=== PATIENT | male | born 1985 | race Caucasian/White ===

== ENCOUNTER 2019-09-28 16:00 | Inpatient (IN) | payer SELFPAY ==
[2019-09-28 16:09] VITALS: BP 140/91; PULSE 101; RESP 18; TEMP 37.2; O2SAT 97; BMI 30.8
--- NOTE | 2019-09-28 16:38 | ECG_ITS ---
Measurements Intervals [place] Rate: 71 P: 53 NV: 138 QRS: 63 QRSD: 96 T: 51 QT: 386 QTc: 422 SINUS RHYTHM No previous ECG available for comparison Electronically Signed On 09-28-2019 20:33:58 CDT by Kelvin Prajapati M.D. [email or web address]
--- NOTE | 2019-09-28 17:03 | W.ED.PSYCH ---
HPI - Psych General: Chief Complaint: Psychiatric Symptoms Stated Complaint: SENT OVER BY [facility] Time Seen by Provider: 09/28/19 16:25 History of Present Illness: HPI Narrative: Maicol is a 34-year-old male who comes in complaining of suicidal ideation. He states he has a plan to overdose on sleeping pills. Patient states he has a history of depression and suicidal ideation. He was most recently hospitalized in [place] but then moved to medical floor after a psych patient had a coronavirus positive come back positive. The patient adamantly denies any cough, fever, shortness of breath or any flulike type of symptom. Patient states he is here because he needs help with his depression. Patient also admits to polysubstance abuse but does not appear to be under the influence of any type of drug at this time. Review of Systems Const: Denies: fever(s), chills, body aches, fatigue, malaise, night sweats or diaphoresis Eyes: Denies: change in vision, blurry vision or blind spots ENMT: Denies: throat pain, odynophagia, hoarseness, ear or mastoid pain, ear discharge, change in hearing or nasal discharge Card: Denies: chest pain, palpitations, irregular heart rhythm, lightheadedness, syncope, pre-syncope, dyspnea on exertion or orthopnea Resp: Denies: dyspnea, productive cough, non-productive cough, wheezing, hemoptysis or chest congestion GI: Denies: abdominal pain, nausea, vomiting, hematemesis, coffee ground emesis, heartburn, diarrhea, constipation, GI cramping, hematochezia or melena : Denies: flank pain, dysuria, urinary frequency, urinary urgency, oliguria, urinary incontinence or hematuria Musc: Denies: neck pain, back pain, extremity pain, extremity swelling, joint pain, joint swelling, joint redness, joint warmth or joint stiffness Skin/Breast: Denies: rash, pruritus, erythema, skin tenderness or jaundice Neuro: Denies: headache(s), numbness in extremities, weakness in extremities, sensory changes, lack of coordination, difficulty walking, dizziness, vertigo, confusion or Slurred speech present Endo: Denies: polyuria, polydipsia, tired all the time, cold intolerance, excessive sweating, flushing, hot flashes or heat intolerance Tristin/Lymph: Denies: easy bruising, easy bleeding, petechiae, purpura or enlarged lymph nodes All/Imm: Denies: urticaria, throat swelling, tongue swelling, facial swelling or acute wheezing PFSH ED PFSH: Medical History Depression Social History (Updated 09/28/19 @ 17:19 by Raven Leigh) Smoking and tobacco status: current every day smoker Substance/Drug Use: current Other substance/drug use details: Patient admits to polysubstance abuse. Physical Exam Const: COMMON NORMALS: no acute distress, patient oriented x3, no limitations, healthy appearing and well nourished EXAM LIMITATIONS: no altered mental status GENERAL APPEARANCE: cooperative, well kempt and well developed HENMT: COMMON NORMALS: normocephalic, atraumatic, hearing grossly normal bilaterally, external ears normal, EAC's normal, Normal external nose present and moist oral mucous membranes HEAD & SCALP: normal to inspection, normocephalic and atraumatic FACE & SINUS: normal facial exam and face symmetric NOSE: Normal external nose present and Normal nares present EXTERNAL EAR: Yes external ears normal EXTERNAL AUDITORY CANAL: EAC's normal MOUTH: Normal oral and palatal mucosa present, lip normal and tongue normal Eye: COMMON NORMALS: Equal, round and reactive pupils present, EOMs intact bilaterally, conjunctivae normal and no scleral icterus GENERAL EYE: appearance normal, both eyes and all related structures and normal light reflex ALIGNMENT: Yes alignment normal PERIORBITAL: periorbital findings normal EYELID: eyelids normal CONJUNCTIVA: Yes conjunctivae normal SCLERA: sclerae normal PUPIL: Yes Equal, round and reactive pupils present DIRECT OPHTHALMOSCOPY: Yes normal light reflex Neck/C-Spine: COMMON NORMALS: full ROM, no lymphadenopathy, supple, no meningeal signs and no JVD GENERAL: Yes normal visual inspection and Yes trachea midline CERVICAL SPINE: Yes cervical ROM normal Chest: COMMONS NORMALS: normal inspection of the chest and normal palpation of entire chest wall Resp: COMMON NORMALS: normal respiratory effort, No retractions, No use of accessory muscles and clear to auscultation bilaterally EFFORT & INSPECTION: Yes able to speak in complete sentences AUSCULTATION: clear to auscultation bilaterally, no crackles, no rales, no rhonchi and no wheezes Cardio: COMMON NORMALS: no JVD, regular rate, regular rhythm, S1 normal heart sound present, S2 normal heart sound present, No gallops present (Cardio), No clicks present (Cardio), No murmurs present (Cardio) and No rub (Cardio) RATE: regular rate RHYTHM: regular rhythm HEART SOUNDS: S1 normal heart sound present, S2 normal heart sound present, no click, no gallops, no murmurs and no rubs GI: COMMON NORMALS: Soft to palpation, non-tender, No hepatosplenomegaly present and no masses PALPATION: Yes Soft to palpation, No Tenderness to palpation present (GI), No Guarding due to palpation present (GI), No Rigid due to palpation, Yes No hepatosplenomegaly present, No Hernia present, No Palpable mass present and No Pulsatile mass present : COMMON NORMALS: Yes no CVA tenderness BLADDER/KIDNEY EXAM: Yes no CVA tenderness Back/Pelvis: COMMON NORMALS: no CVA tenderness, thoracic and lumbar spine normal to inspection, no thoracic nor lumbar tenderness and thoraco-lumbar ROM normal Extremity: COMMON NORMALS: normal to inspection, full ROM, capillary refill normal, no joint enlargement, no clubbing, cyanosis or edema and no calf tenderness Neuro: COMMON NORMALS: patient oriented x3, CN's II-XII intact bilaterally, moves all extremities, no focal motor deficits and no sensory deficits noted MENINGEAL SIGNS: Yes no meningeal signs SPEECH: speech normal Psych: COMMON NORMALS: mental status grossly normal, Normal thought process present, cooperative, normal affect, speech normal and activity/motor behavior normal APPEARANCE: Yes well kempt SPEECH: Yes normal speech THOUGHT PROCESS: Normal thought process present Skin: COMMON NORMALS: no rashes or lesions noted, turgor normal, no jaundice, no petechiae and no mottling GENERAL SKIN EXAM: no rashes or lesions noted and turgor normal MDM - Psych MDM Narrative: Medical decision making narrative: The case was reviewed with Dr. Gonzalez, he agrees to admit the patient for suicidal ideation once medically cleared. He understands the patient's situation in [place] and that the patient here has a normal pulse ox, no cough, no chills, no shortness of breath or any other sign of COVID exposure. He agrees to go ahead and admit and declines to have the patient tested for concern. Lab Data: Labs: Lab Results 09/28/19 Range/Units 16:45 Urine Opiates Scre en Negative (Negative) ng/mL Ur Barbiturates Sc reen Negative (Negative) ng/mL Ur Phencyclidine S crn Negative (Negative) ng/mL Ur Amphetamines Sc reen Negative (Negative) ng/mL U Benzodiazepines Scrn Positive H (Negative) ng/mL Urine Cocaine Scre en Negative (Negative) ng/mL U Marijuana (THC) Screen Positive H (Negative) ng/mL EKG Data^: EKG 1: Attestation: I personally reviewed and interpreted this EKG as follows: EKG interpretation date: 09/28/19 EKG interpretation time: 17:12 Interpretation: Normal sinus rhythm at 71 beats a minute, no acute ST or T wave changes. Benign early repolarization. Discharge Plan Discharge Patient Disposition: Admitted As Inpatient Clinical Impression: Suicidal ideation, Depression Condition: Stable Prescriptions: No Action fluoxetine 40 mg Capsule 40 mg PO DAILY RF: 0 hydroxyzine pamoate 100 mg Capsule 100 mg PO BEDTIME RF: 0 Tylenol 325 mg Tablet 325 mg PO QID PRN (Reason: Pain) RF: 0 Coding Level of Care Code ED Entertainment & Media Correspondent for Chg Omi
[2019-09-28 17:06] LABS: Amphetamines Screen Urine Negative (Negative); Barbiturates Screen Urine Negative (Negative); Benzodiazepines Screen Urine Positive (Negative); Cocaine Screen Urine Negative (Negative); Opiate Screen Urine Negative (Negative); PCP Screen Urine Negative (Negative); THC Screen Urine Positive (Negative)
[2019-09-28 17:49] LABS: Basophils % 0.3 %; Eosinophils # 0.1 10^3/uL (0.0-0.8); Eosinophils % 1.7 %; Hematocrit 39.7 % (42.0-52.0); Lymphocytes # 1.8 10^3/uL (0.8-4.8); Lymphocytes % 29.9 %; Mean Corpuscular HGB Conc 32.7 g/dL (30.0-36.0); Mean Corpuscular Hemoglobin 29.4 pg (28.0-34.0); Mean Corpuscular Volume 89.8 fL (80-94); Mean Platelet Volume 8.8 fL (7.4-10.4); Monocytes # 0.3 10^3/uL (0.2-0.9); Neutrophils # 3.8 10^3/uL (1.8-7.7); Neutrophils % 62.9 %; Nucleated Red Blood Cells % 0 %; Platelet Count 230 10^3/cmm (130-400); Red Blood Count 4.42 10^6/uL (4.1-5.3); Red Cell Distribution Width 14.3 % (12.1-15.1); White Blood Count 6.1 10^3/uL (4.0-10.0)
[2019-09-28 18:01] VITALS: BP 97/57; PULSE 70; RESP 16; O2SAT 98
[2019-09-28 18:09] LABS: Lithium < 0.1 mmol/L (0.6-1.2)
[2019-09-28 18:10] LABS: Carbamazepine Tegretol < 2.0 ug/mL (4.0-12.0); Phenytoin Dilantin < 0.8 ug/mL (10-20); Valproic Acid Level < 2.8 mcg/mL (50-100)
[2019-09-28 18:16] LABS: Alanine Aminotransferase 218 U/L (0-41); Alkaline Phosphatase 68 IU/L (40-130); Aspartate Amino Transferase 73 U/L (0-40); Blood Urea Nitrogen 8 mg/dL (6-20); Carbon Dioxide 28 mmol/L (22-29); Chloride 102 mmol/L (98-107); Creatinine Clr Calc Pharmacy 135.4278; Globulin 2.6 g/dL (1.3-4.6); Glucose 187 mg/dL (65-115); Osmolality Calculated 287 mOsm/kg (285-295); Sodium 138 mmol/L (136-145); Thyroid Stimulating Hormone 1.03 uIU/mL (0.27-4.20); Total Bilirubin 0.2 mg/dL (0.15-1.2); Total Protein 6.6 g/dL (6.6-8.7)
[2019-09-28 18:18] LABS: Acetaminophen < 5.0 ug/mL (10-30); Alcohol Level < 10 mg/dL (0-10); Salicylate < 0.3 mg/dL (3-10)
[2019-09-28 19:05] VITALS: BP 125/72; PULSE 71; RESP 20; TEMP 37.1; O2SAT 99
[2019-09-28] MEDS: quetiapine 25 mg Tablet 50 MG PO (21:19)
[2019-09-28 22:00] VITALS: BP 137/85; PULSE 95; RESP 17; TEMP 37.1; O2SAT 95
[2019-09-29 06:00] VITALS: BP 118/68; PULSE 67; RESP 17; TEMP 36.7; O2SAT 97
[2019-09-29] MEDS: hyDROXYzine 25 mg Capsule 50 MG PO (10:20)
--- NOTE | 2019-09-29 10:21 | PC.NURSE ---
Addendum entered by Concha Thomas LPN 09/29/19 14:32: late entry for 09/29/19 @ 1200 prn vistaril effective no further c/o anxiety Original Note: PRN VISTARIL 50 MG GIVEN PO PER PT C/O ANXIETY. PT PACING UNIT, HANDS CLENCHED. TOOK MEDS WITHOUT INCIDENT. WILL CONT TO MONITOR. WILL CONT TO MONITOR
[2019-09-29] MEDS: OLANZapine ODT 5 MG TABLET PO (11:38)
[2019-09-29 13:11] VITALS: BP 118/72; PULSE 73; RESP 18; TEMP 36.8; O2SAT 97
--- NOTE | 2019-09-29 14:16 | P.HP_ITS ---
Providers/Chief Complaint Admitting Physician: Temo Gonzalez MD Chief Complaint: SENT OVER BY [facility] HPI NPU History of Present Illness Chief complaint: I have been struggling with depression and I know it has to do with my drug habit. History of present illness:Maicol Velasquez is a 34 year old male who describes himself as having a lifelong pattern of substance use with his drug of choice being methamphetamine. He has been clean for the past 9 days. However he points to his daily use of methamphetamine as a being a primary problem for him. Comorbid with this is a is reported depression. He reports that he has frequent suicidal ideation. Though he has no intent or plan at this time and, within the past month, authorities had the police remove him from the top of a 2011 story building. He was on drugs at the time of but recalls climbing up there and thinking about suicide at the time. He specifically denies any suicide attempts but says he has frequent thoughts and impulses. He reports himself to be hopeless and overwhelmed. He is sad and blue on a daily basis. He denies any history of manic symptoms or signs outside of his methamphetamine use. His urine drug screen on admission was negative as was his blood alcohol level. Emergency room physician note: HPI Narrative: Maicol is a 34-year-old male who comes in complaining of suicidal ideation. He states he has a plan to overdose on sleeping pills. Patient states he has a history of depression and suicidal ideation. He was most r ecently hospitalized in [place] but then moved to medical floor after a psych patient had a coronavirus positive come back positive. The patient adamantly denies any cough, fever, shortness of breath or any flulike type of symptom. Patient states he is here because he needs help with his depression. Patient also admits to polysubstance abuse but does not appear to be under the influence of any type of drug at this time. Mental health history: The patient reports a total of 4 psychiatric hospitalizations with the last one being just last month and I want. This was subsequent to his attempting to return to his home geographic region from [place] and running out of money in [place]. He became hopeless and found himself at the top of a 20 story building where he was arrested and taken to a psychiatric hospital. He says that they did not put him on medication because his treatment was interrupted when 1 of the inpatients was discovered to be positive for the coronavirus and he was subsequently transferred to a medical unit and discharged. He was last hospitalized at [facility] on 02/10/16: This is a 30-year-old male who continues to grieve his father, who last February. Yesterday was his father's birthday and he began to feel increasingly depressed, which he had already been to some degree. He has had anxiety, difficulty sleeping, despondent mood, lack of motivation and attributes part of this to the fact that he is no longer on citalopram and clonazepam, which combination seemed to work well for him. He's been off of it for months. He fears that, if his evolving depression doesn't get treated, he may well become suicidal once again. Hospital Course: The patient was put back on his citalopram 20 mg daily. He did very well with it and his mood improved steadily. Family psychiatric history: Patient's uncle committed suicide. Mother was also treated for some sort of mental health problem but he does not know what the diagnosis or problem was. Social history: Patient grew up in [place]. He dropped out of school in the seventh grade. He acquired his GED. 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 At this time, he is homeless and unemployed. Legal history: Public record lists arrests for stealing and the passing bad checks as well as possession of drugs in 2003 Past medical history: Allergies: No known drug allergies Medications: Prozac was prescribed at the [facility] 9 days ago. It has been well-tolerated but provided no benefit. Medical: No history of seizures Surgeries: Herniated disc surgery between L4/L5 and left shoulder separation that is post trauma Mental Status Exam: Appearance: hygiene is fair; no gross neurological deficits., gait is unremarkable; AIMS=0 Speech: Speech is of normal rate and rhythm and easily understood. Thought processes: Thought processes are abstract. Judgment is not adequate for safety. Associations: intact Psychotic processes: There is no indication of guarding or paranoia. There is no attention to the internal stimuli. Auditory and visual hallucinations are denied. Judgment: Insight is fair. Problem solving skills are adequate for safety. Orientation: The patient is oriented to person, place time and situation. Memory: no deficits noted in immediate, intermediate, or remote spheres. Attention: The patient is alert and interpersonally engaged. Language: Verbalizations are coherent. Fund of knowledge: Fund of knowledge is adequate. Affect/Mood: Affect is consistent with a depressed mood. He denied suicidal ideation Affective range constricted Psychosis: perception unimpaired except through cognitive distortion; reality testing intact. Diagnoses: Major depression?single episode, severe, without psychotic features Amphetamine abuse disorder Assessment:Maicol Velasquez is a 34-year-old man who is able to correctly identify that he has problems with both substance use and depression and is now seeking help. He has begun to explore the availability of rehabilitation programs but has been unsuccessful. He would like to be in an inpatient rehabilitation prog yoel. However he in addition to the problems of his methamphetamine use, he also has significant clinical depression that appears to be separate from that. He has now been clean and sober for 9 days. He continues to be severely depressed. He has considerable psychosocial problems with which he much tend. The plan on hospital day #1 is to initiate Wellbutrin XL 150 mg daily which has been helpful in the past without side effects. We will also provide imipramine at night as needed sleep that may also boost the effect of the antidepressant. He will meet with social work and therapeutic staff with his stated goal of establishing potential rehabilitation programs. Treatment plan: Due to the psychiatric conditions and treatment listed in the Assessment and Plan - the patient requires continued hospitalization. Will provide a safe and therapeutic environment for patient.. Will continue inpatient treatment to allow for medication adjustment and monitoring. Will continue q15 min safety checks. Maicol Velasquez is a 34-year-old man who is able to correctly identify that he has problems with both substance use and depression and is now seeking help. He has begun to explore the availability of rehabilitation programs but has been unsuccessful. He would like to be in an inpatient rehabilitation program. However he in addition to the problems of his methamphetamine use, he also has significant clinical depression that appears to be separate from that. He has now been clean and sober for 9 days. He continues to be severely depressed. He has considerable psychosocial problems with which he much tend. The plan on hospital day #1 is to initiate Wellbutrin XL 150 mg daily which has been helpful in the past without side effects. We will also provide imipramine at night as needed sleep that may also boost the effect of the antidepressant. He will meet with social work and therapeutic staff with his stated goal of establishing potential rehabilitation programs. Monitor patient's mood, sleep, appetite, and behavior closely. Encourage patient to participate in individual and group therapeutic sessions on the patiño. Estimated length of stay 5 days The expected benefits and potential side effects of patient's psychiatric medications were discussed with the patient. The patient understands and consents to treatment.CRITERIA FOR DISCHARGE: stable on medications and no longer an im Meds NPU Home Medications Medication Instructions Recorded Confirmed Last Taken Type acetaminophen [Tylenol] 325 mg PO QID PRN 09/28/19 09/28/19 Unknown History fluoxetine 40 mg PO DAILY 09/28/19 09/28/19 09/28/19 History hydroxyzine pamoate 100 mg PO BEDTIME 09/28/19 09/28/19 09/27/19 History Allergies Allergy/AdvReac Type Severity Reaction Status Date / Time trazodone AdvReac ADR-Cramping Verified 09/28/19 20:46 of the Muscles PFSH NPU PFSH: Medical History Depression Social History (Updated 09/28/19 @ 17:19 by Raven Leigh) Smoking and tobacco status: current every day smoker Substance/Drug Use: current Other substance/drug use details: Patient admits to polysubstance abuse. Vitals/I&O/Wt Last Vital Signs Temp 98.3 F 09/29/19 13:11 Pulse 73 09/29/19 13:11 Resp 18 09/29/19 13:11 BP 118/72 09/29/19 13:11 Pulse Ox 97 09/29/19 13:11 Weight last 48 hrs Weight 108.862 kg Data NPU : 09/28/19 17:40 09/28/19 17:40 Involuntary Hold Information 96 Hour Hold: 96 Hour Involuntary Admission: Yes Attestations NPU Medical Necessity Statement*: Patient will remain in the hospital another 4-5 nights to complete his 96-hour involuntary commitment. Coding Level of Care Code Acute Elementary Vocal Music Teacher for Daniel Braga
[2019-09-29] MEDS: buPROPion XL (24 HR) 150 mg Tablet PO (14:19)
[2019-09-29 20:17] VITALS: BP 117/65; PULSE 61; RESP 17; TEMP 36.7; O2SAT 97
[2019-09-30 06:00] VITALS: BP 132/79; PULSE 67; RESP 17; TEMP 36.4; O2SAT 98
[2019-09-30] MEDS: buPROPion XL (24 HR) 150 mg Tablet PO (08:11)
--- NOTE | 2019-09-30 09:14 | P.PN_ITS ---
Subjective NPU Subjective: Interval history: Patient states that he is still focused on getting into an inpatient rehabilitation program. He did not sleep well last night and woke up in the middle of the night but then went to sleep again this morning after breakfast. Otherwise her been no changes. Mental Status Exam MSE Comments: Mental Status Exam: Appearance: hygiene is fair; no gross neurological deficits., gait is unremarkable; AIMS=0 Speech: Speech is of normal rate and rhythm and easily understood. Thought processes: Thought processes are abstract. Judgment is not adequate for safety. Associations: intact Psychotic processes: There is no indication of guarding or paranoia. There is no attention to the internal stimuli. Auditory and visual hallucinations are denied. Judgment: Insight is fair. Problem solving skills are adequate for safety. Orientation: The patient is oriented to person, place time and situation. Memory: no deficits noted in immediate, intermediate, or remote spheres. Attention: The patient is alert and interpersonally engaged. Language: Verbalizations are coherent. Fund of knowledge: Fund of knowledge is adequate. Affect/Mood: Affect is consistent with a depressed mood. He denied suicidal ideation Affective range constricted Psychosis: perception unimpaired except through cognitive distortion; reality testing intact. Vitals/I&O/Wt Last Vital Signs Temp 97.6 F 09/30/19 06:00 Pulse 67 09/30/19 06:00 Resp 17 09/30/19 06:00 BP 132/79 09/30/19 06:00 Pulse Ox 98 09/30/19 06:00 Weight last 48 hrs Weight 108.862 kg Data NPU : 09/28/19 17:40 09/28/19 17:40 A&P Additional A&P Information Diagnoses: Major depression?single episode, severe, without psychotic features Amphetamine abuse disorder Assessment:Maicol Velasquez is a 34-year-old man who is able to correctly identify that he has problems with both substance use and depression and is now seeking help. He has begun to explore the availability of rehabilitation programs but has been unsuccessful. He would like to be in an inpatient rehabilitation program. However he in addition to the problems of his methamphetamine use, he also has significant clinical depression that appears to be separate from that. He has now been clean and sober for 9 days. He continues to be severely depressed. He has considerable psychosocial problems with which he much tend. The plan on hospital day #1 is to initiate Wellbutrin XL 150 mg daily which has been helpful in the past without side effects. We will also provide imipramine at night as needed sleep that may also boost the effect of the antidepressant. He will meet with social work and therapeutic staff with his stated goal of es tablishing potential rehabilitation programs. Treatment plan: Due to the psychiatric conditions and treatment listed in the Assessment and Plan - the patient requires continued hospitalization. Will provide a safe and therapeutic environment for patient.. Will continue inpatient treatment to allow for medication adjustment and monitoring. Will continue q15 min safety checks. Maicol Velasquez is a 34-year-old man who is able to correctly identify that he has problems with both substance use and depression and is now seeking help. He has begun to explore the availability of rehabilitation programs but has been unsuccessful. He would like to be in an inpatient rehabilitation program. However he in addition to the problems of his methamphetamine use, he also has significant clinical depression that appears to be separate from that. He has now been clean and sober for 9 days. He continues to be severely depressed. He has considerable psychosocial problems with which he much tend. The plan on hospital day #1 is to initiate Wellbutrin XL 150 mg daily which has been helpful in the past without side effects. We will also provide imipramine at night as needed sleep that may also boost the effect of the antidepressant. He will meet with social work and therapeutic staff with his stated goal of establishing potential rehabilitation programs. Hospital day #2: Sleep difficulties most likely due to the fact that he was given olanzapine yesterday afternoon and slept most of the afternoon. Plan at this time is to change his PRN anxiety medication to lorazepam 1 mg. Focus of attention is establishing a follow-up care through an inpatient rehabilitation program. Monitor patient's mood, sleep, appetite, and behavior closely. Encourage patient to participate in individual and group therapeutic sessions on the patiño. Estimated length of stay 5 days The expected benefits and potential side effects of patient's psychiatric medications were discussed with the patient. The patient understands and consents to treatment.CRITERIA FOR DISCHARGE: stable on medications and no longer an imminent risk Involuntary Hold Information 96 Hour Hold: 96 Hour Involuntary Admission: Yes Attestations NPU Medical Necessity Statement*: Patient will remain in the hospital another 4-6 nights for assessment of medication efficacy and tolerability and placement to an inpatient rehabilitation program.. Coding Level of Care Code Acute Offender Job Retention Specialist for Daniel Braga
[2019-09-30 13:08] VITALS: BP 112/70; PULSE 77; RESP 19; TEMP 36.9; O2SAT 98
[2019-09-30] MEDS: OLANZapine ODT 5 MG TABLET PO (15:10)
--- NOTE | 2019-09-30 15:10 | PC.NURSE ---
Addendum entered by Concha Thomas LPN 09/30/19 16:28: prn med effective no further c/o anxiety noted, pt able to eat dinner in day area Original Note: PRN ZYPREXA ZYDIS 5 MG GIVEN PO PER PT C/O STATED ANXIETY. NO OUTWARD S/S OF ANXIETY NOTED. WILL CONT TO MONITOR
[2019-09-30 19:36] VITALS: BP 109/68; PULSE 77; RESP 20; TEMP 36.9; O2SAT 96
[2019-10-01 06:00] VITALS: BP 114/72; PULSE 83; RESP 18; TEMP 36.7; O2SAT 97
[2019-10-01] MEDS: buPROPion XL (24 HR) 150 mg Tablet PO (08:20)
--- NOTE | 2019-10-01 10:08 | PM.NPN ---
Subjective NPU Subjective: Interval history: Again, patient states that he is still focused on getting into an inpatient rehabilitation program. He did not sleep well last night on imipramine 50 mg and woke up in the middle of the night but then went to sleep again this morning after breakfast. Otherwise her been no changes. Selected Entries 09/30/19 06:00 09/30/19 13:08 09/30/19 19:36 Blood Pressure 132/79 112/70 109/68 10/01/19 06:00 Blood Pressure 114/72 Mental Status Exam MSE Comments: Mental Status Exam: Appearance: hygiene is fair; no gross neurological deficits., gait is unremarkable; AIMS=0 Speech: Speech is of normal rate and rhythm and easily understood. Thought processes: Thought processes are abstract. Judgment is not adequate for safety. Associations: intact Psychotic processes: There is no indication of guarding or paranoia. There is no attention to the internal stimuli. Auditory and visual hallucinations are denied. Judgment: Insight is fair. Problem solving skills are adequate for safety. Orientation: The patient is oriented to person, place time and situation. Memory: no deficits noted in immediate, intermediate, or remote spheres. Attention: The patient is alert and interpersonally engaged. Language: Verbalizations are coherent. Fund of knowledge: Fund of knowledge is adequate. Affect/Mood: Affect is consistent with a depressed mood. He denied suicidal ideation Affective range constricted Psychosis: perception unimpaired except through cognitive distortion; reality testing intact. Vitals/I&O/Wt Last Vital Signs Temp 98.1 F 10/01/19 06:00 Pulse 83 10/01/19 06:00 Resp 18 10/01/19 06:00 BP 114/72 10/01/19 06:00 Pulse Ox 97 10/01/19 06:00 Data NPU : 09/28/19 17:40 09/28/19 17:40 A&P Additional A&P Information Diagnoses: Major depression?single episode, severe, without psychotic features Amphetamine abuse disorder Assessment:Maicol Velasquez is a 34-year-old man who is able to correctly identify that he has problems with both substance use and depression and is now seeking help. He has begun to explore the availability of rehabilitation programs but has been unsuccessful. He would like to be in an inpatient rehabilitation program. However he in addition to the problems of his methamphetamine use, he also has significant clinical depression that appears to be separate from that. He has now been clean and sober for 9 days. He continues to be severely depressed. He has considerable psychosocial problems with which he much tend. The plan on hospital day #1 is to initiate Wellbutrin XL 150 mg daily which has been helpful in the past without side effects. We will also provide imipramine at night as needed sleep that may also boost the effect of the antidepressant. He will meet with social work and therapeutic staff with his stated goal of establishing potential rehabilitation programs. Treatment plan: Due to the psychiatric conditions and treatment listed in the Assessment and Plan - the patient requires continued hospitalization. Will provide a safe and therapeutic environment for patient.. Will continue inpatient treatment to allow for medication adjustment and monitoring. Will continue q15 min safety checks. Maicol Velasquez is a 34-year-old man who is able to correctly identify that he has problems with both substance use and depression and is now seeking help. He has begun to explore the availability of rehabilitation programs but has been unsuccessful. He would like to be in an inpatient rehabilitation program. However he in addition to the problems of his methamphetamine use, he also has significant clinical depression that appears to be separate from that. He has now been clean and sober for 9 days. He continues to be severely depressed. He has considerable psychosocial problems with which he much tend. The plan on hospital day #1 is to initiate Wellbutrin XL 150 mg daily which has been helpful in the past without side effects. We will also provide imipramine at night as needed sleep that may also boost the effect of the antidepressant. He will meet with social work and therapeutic staff with his stated goal of establishing potential rehabilitation programs. Hospital day #2: Sleep difficulties most likely due to the fact that he was given olanzapine yesterday afternoon and slept most of the afternoon. Plan at this time is to change his PRN anxiety medication to lorazepam 1 mg. Focus of attention is establishing a follow-up care through an inpatient rehabilitation program. Hospital day #3: Replace imipramine with gabapentin 600 mg at bedtime targeting insomnia Monitor patient's mood, sleep, appetite, and behavior closely. Encourage patient to participate in individual and group therapeutic sessions on the patiño. Estimated length of stay 5 days The expected benefits and potential side effects of patient's psychiatric medications were discussed with the patient. The patient understands and consents to treatment.CRITERIA FOR DISCHARGE: stable on medications and no longer an imminent risk Involuntary Hold Information 96 Hour Hold: 96 Hour Involuntary Admission: Yes Attestations NPU Medical Necessity Statement*: Patient to remain in the hospital another 2-3 nights until appropriate placement can be found in an inpatient rehabilitation program. Coding Level of Care Code Acute Supervisor Industrial [employer]ment for Daniel Braga
[2019-10-01] MEDS: nicotine 2 mg Gum BUCCAL (11:43)
[2019-10-01] MEDS: OLANZapine ODT 5 MG TABLET PO (12:07)
[2019-10-01 14:00] VITALS: BP 125/85; PULSE 91; RESP 18; TEMP 36.8; O2SAT 98
[2019-10-01] MEDS: hyDROXYzine 25 mg Capsule 50 MG PO ×2 (14:02→20:36)
--- NOTE | 2019-10-01 14:03 | PC.NURSE ---
PT VOICED HE WAS FEELING ANXIOUS AND ASKED FOR MEDICATION. ADMINISTERED VISTARIL PRN S ORDERED. WILL FOLLOW UP NEEDED
--- NOTE | 2019-10-01 15:00 | PC.NURSE ---
PT LESS ANXIOUS AND HAS BEEN RESTING IN BED. WILL CONT TO MONITOR AND FOLLOW UP NEEDED
[2019-10-01] MEDS: gabapentin 300 mg Capsule 600 MG PO (20:36)
--- NOTE | 2019-10-01 20:37 | PC.NURSE ---
vVISTARIL 50 MG PO GIVEN FOR ANXIETY.
[2019-10-01 21:44] VITALS: BP 119/74; PULSE 91; RESP 21; TEMP 36.6; O2SAT 97
[2019-10-02 06:00] VITALS: BP 133/88; PULSE 73; RESP 20; TEMP 36.5; O2SAT 98
[2019-10-02] MEDS: buPROPion XL (24 HR) 150 mg Tablet PO (08:11)
[2019-10-02] MEDS: nicotine 2 mg Gum BUCCAL (12:19)
[2019-10-02 14:00] VITALS: BP 118/71; PULSE 106; RESP 18; TEMP 37.1
--- NOTE | 2019-10-02 14:28 | PM.NPN ---
Subjective NPU Subjective: Interval history: Again, patient states that he is waiting for admission to an inpatient rehabilitation program. He complains bitterly of anxiety, but is on second tier treatment for it. He also has hydroxyzine. We discussed the risk of benzodiazepines in his case. Medications: Reviewed: Yes Medication Review Details: Olanzapine appears to be utilized here to augment bupropion XL in treatment of anxiety. This is at least second tier but has been shown to be efficacious and at least a couple studies. Mental Status Exam MSE Comments: Body habitus is quite good today; no gross neurological deficits., gait is unremarkable; AIMS=0 Speech: Speech is of normal rate and rhythm and easily understood. There is no dysarthria or pressure. Thought processes: Thought processes are abstract. Judgment is not adequate for safety. There is no looseness of association. Psychotic processes: There is no indication of guarding or paranoia. There is no attention to internal stimuli. Auditory and visual hallucinations are denied. Judgment: Insight is fair. Problem solving skills are adequate for safety. The patient knows he needs to be in rehab, else he will relapse. Orientation: The patient is oriented to person, place time and situation. Memory: no deficits noted in immediate, intermediate, or remote spheres. Attention: The patient is alert and interpersonally engaged. Language: Verbalizations are coherent. Fund of knowledge: Fund of knowledge is adequate. Affect/Mood: Affect is flat, consistent with a depressed mood. He denied suicidal ideation Affective range constricted Psychosis: perception unimpaired except through cognitive distortion; reality testing intact. Vitals/I&O/Wt Last Vital Signs Temp 98.8 F 10/02/19 14:00 Pulse 106 H 10/02/19 14:00 Resp 18 10/02/19 14:00 BP 118/71 10/02/19 14:00 Pulse Ox 98 10/02/19 06:00 Weight last 48 hrs Weight 236 lb 3.2 oz Data NPU : 09/28/19 17:40 09/28/19 17:40 A&P Assessment and plan (1) Suicidal ideation: The patient is still moderately depressed. Treatment is underway, including search for a rehab program which will address the foundation of his depression. Status: Acute (2) Depression: The patient is on appropriate antidepressant pharmacotherapy. He needs to be in outpatient follow-up care and psychotherapy. Status: Acute Qualifiers: Depression Type: unspecified Qualified Code(s): F32.9 - Major depressive disorder, single episode, unspecified (3) Methamphetamine dependence, continuous: The patient is withstanding withdrawal; a search for a rehab bed is underway. Status: Acute Involuntary Hold Information 96 Hour Hold: 96 Hour Involuntary Admission: Yes Attestations NPU Medical Necessity Statement*: Patient to remain in the hospital another 2-3 nights until appropriate placement can be found in an inpatient rehabilitation program. Time Spent in Patient Care: Greater than 35 minutes (Careful review of previous records and pharmacotherapy. Consultation with patient. Documentation.) (>than 50% of time spent in counselling and/or direct pt care on unit). Coding Level of Care Code Acute Produce Buyer for [facility] Fwd Diagnoses Suicidal ideation R45.851 Depression F32.9 Depression Type: unspecified Methamphetamine dependence, continuous F15.20
[2019-10-02 20:22] VITALS: BP 115/69; PULSE 88; RESP 18; TEMP 37; O2SAT 97
[2019-10-02] MEDS: gabapentin 300 mg Capsule 600 MG PO (20:46)
[2019-10-02] MEDS: hyDROXYzine 25 mg Capsule 50 MG PO (20:46)
[2019-10-03 06:00] VITALS: BP 130/81; PULSE 69; RESP 17; TEMP 36.4; O2SAT 98
[2019-10-03] MEDS: buPROPion XL (24 HR) 150 mg Tablet PO (07:50)
[2019-10-03] MEDS: nicotine 21 mg Patch 1 PATCH TRANSDERMA (07:52)
[2019-10-03 13:42] VITALS: BP 123/77; PULSE 102; RESP 20; TEMP 36.6; O2SAT 96
--- NOTE | 2019-10-03 14:47 | PM.NPN ---
Subjective NPU Subjective: Interval history: Patient, with the help of her mechanical planner, has made several phone calls to various inpatient rehab programs. He has acceptance from a program in [facility] and is pending a phone conference this afternoon with a program in [place]. His anxiety has definitely diminished and he is eager to pursue recovery in a program. Medications: Reviewed: Yes Medication Review Details: Current Medications Acetaminophen (Tylenol) 650 mg PO Q4H PRN PRN Reason: MILD PAIN Benztropine Mesylate (Cogentin) 1 mg PO BID PRN PRN Reason: Mild Extrapyramidal symptoms Bupropion HCl (Wellbutrin Xl (24 Hr)) 150 mg PO DAILY BONNIE Last Admin: 10/03/19 07:50 Dose: 150 mg Documented by: Camphor/Menthol/Phenol (Blistex) 1 applic TOPICAL Q1H PRN PRN Reason: DRYNESS Diphenhydramine HCl (Benadryl) 50 mg IM ONCE PRN PRN Reason: Severe Extrapyramidal Symptoms Diphenhydramine HCl (Benadryl) 50 mg IM Q4H PRN PRN Reason: Severe Aggression Gabapentin (Neurontin) 600 mg PO BEDTIME BONNIE Last Admin: 10/02/19 20:46 Dose: 600 mg Documented by: Haloperidol (Haldol) 5 mg PO Q4H PRN PRN Reason: AGITATION Haloperidol Lactate (Haldol Inj) 5 mg IM Q4H PRN PRN Reason: Severe Aggression Hydroxyzine Pamoate (Vistaril) 50 mg PO Q6H PRN PRN Reason: ANXIETY Last Admin: 10/02/19 20:46 Dose: 50 mg Documented by: Imipramine HCl (Tofranil) 50 mg PO BEDTIME PRN PRN Reason: INSOMNIA Loperamide HCl (Imodium Capsule) 2 mg PO Q6H PRN PRN Reason: DIARRHEA Lorazepam (Ativan) 1 mg PO Q4H PRN PRN Reason: ANXIETY Nicotine (Nicoderm 21 Mg Patch) 1 patch TRANSDERMA DAILY PRN PRN Reason: NICOTINE WITHDRAWAL Last Admin: 10/03/19 07:52 Dose: 1 patch Documented by: Nicotine Polacrilex (Nicorette) 2 mg BUCCAL Q2H PRN PRN Reason: NICOTINE WITHDRAWAL Last Admin: 10/02/19 12:19 Dose: 2 mg Documented by: Olanzapine (Zyprexa Zydis) 5 mg PO Q4H PRN PRN Reason: Agitation/Psychosis Last Admin: 10/01/19 12:07 Dose: 5 mg Documented by: Ondansetron HCl (Zofran) 4 mg PO Q6H PRN PRN Reason: NAUSEA AND VOMITING Mental Status Exam MSE Comments: Body habitus is quite good today; no gross neurological deficits., gait is unremarkable; AIMS=0 Speech is of normal rate and rhythm and easily understood. There is no dysarthria or pressure. Thought processes are abstract. Judgment is not adequate for safety. There is no looseness of association. There is no indication of guarding or paranoia. There is no attention to internal stimuli. Auditory and visual hallucinations are denied. Insight is fair. Problem solving skills are adequate for safety. The patient knows he needs to be in rehab, else he will relapse. The patient is oriented to person, place time and situation. There are no deficits noted in immediate, intermediate, or remote spheres. The patient is alert and interpersonally engaged. Verbalizations are coherent. Fund of knowledge is adequate. Mood is upbeat. Affect is flat, consistent with a depressed mood. He denied suicidal ideation. Psychosis: perception unimpaired except through cognitive distortion; reality testing intact. Vitals/I&O/Wt Last Vital Signs Temp 97.8 F 10/03/19 13:42 Pulse 102 H 10/03/19 13:42 Resp 20 H 10/03/19 13:42 BP 123/77 10/03/19 13:42 Pulse Ox 96 10/03/19 13:42 Weight last 48 hrs Weight 236 lb 3.2 oz Data NPU : 09/28/19 17:40 09/28/19 17:40 A&P Assessment and plan (1) Methamphetamine dependence, continuous: The patient is in early recovery. He is pending entry into a rehab program and will probably be able to leave tomorrow. Status: Acute (2) Depression: Mood is significantly improved. He denies suicidal or homicidal ideation, plan or intent. Status: Acute Qualifiers: Depression Type: unspecified Qualified Code(s): F32.9 - Major depressive disorder, single episode, unspecified Involuntary Hold Information 96 Hour Hold: 96 Hour Involuntary Admission: Yes Comments: 96-hour hold will be rescinded. Attestations NPU Medical Necessity Statement*: The patient will probably be able to leave tomorrow, as rehab beds are opening up. Time Spent in Patient Care: Greater than 35 minutes (>than 50% of time spent in counselling and/or direct pt care on unit). Coding Level of Care Code Acute Tester [employer] for Daniel Fwd Diagnoses Methamphetamine dependence, continuous F15.20 Depression F32.9 Depression Type: unspecified
[2019-10-03 18:48] VITALS: BP 123/77; PULSE 102; RESP 20; TEMP 36.6; O2SAT 96
[2019-10-03 18:49] VITALS: BP 123/77; PULSE 102; RESP 20; TEMP 36.6; O2SAT 96
[2019-10-03] MEDS: gabapentin 300 mg Capsule 600 MG PO (19:29)
--- NOTE | 2019-10-03 19:39 | PC.NURSE ---
Pt given HS gabapentin at this time due to being discharged. Home meds and other personal belongings given and pt escorted to waiting private vehicle by TEENA Canales.
--- NOTE | 2019-10-04 10:00 | PC.NURSE ---
discharge medications called into [facility] pharmacy, spoke to Nagi the pharmacist.
--- NOTE | 2019-10-21 07:20 | PM.NDC ---
Diagnoses at Discharge Discharge Diagnosis (1) Methamphetamine dependence, continuous: Status: Acute Problem details: Patient is pending placement in a rehab program. He is highly motivated. (2) Depression: Status: Resolved Problem details: The patient's despondency has waned and his mood is brighter. Qualifiers: Depression Type: unspecified Qualified Code(s): F32.9 - Major depressive disorder, single episode, unspecified Reason for Visit Reason for Visit: SENT OVER BY [facility] Brief History: The patient was sent here by [facility] because of his overwhelming methamphetamine addiction. Hospital Course Discharge Summary Patient was involved in [facility]. Discharge planning was involved from the beginning and placement was effectuated for inpatient rehab, which greatly improved the patient's mood. He is no longer suicidal and never was homicidal. Involuntary Hold Information 96 Hour Hold: 96 Hour Involuntary Admission: No Mental Status Exam MSE Comments: Body habitus is quite good today; no gross neurological deficits. Gait is unremarkable; AIMS=0. Speech is of normal rate and rhythm and easily understood. There is no dysarthria or pressure. Thought processes are abstract. Judgment is not adequate for safety. There is no looseness of association. There is no indication of guarding or paranoia. There is no attention to internal stimuli. Auditory and visual hallucinations are denied. Insight is fair. Problem solving skills are adequate for safety. The patient knows he needs to be in rehab, else he will relapse. The patient is oriented to person, place time and situation. There are no deficits noted in immediate, intermediate, or remote spheres. The patient is alert and interpersonally engaged. Verbalizations are coherent. Fund of knowledge is adequate. Mood is upbeat. Affect is flat, consistent with a depressed mood. He denied suicidal ideation. Perception unimpaired except through cognitive distortion; reality testing intact. Discharge Data Vitals: Last Vital Signs Temp 97.8 F 10/03/19 18:49 Pulse 102 H 10/03/19 18:49 Resp 20 H 10/03/19 18:49 BP 123/77 10/03/19 18:49 Pulse Ox 96 10/03/19 18:49 Discharge Plan Discharge Patient Disposition: Home, Self-Care Condition: Stable Prescriptions: New gabapentin 300 mg Capsule 600 mg PO BEDTIME Qty: 0 RF: 0 bupropion HCl 150 mg Tablet Extended Release 24 Hr 150 mg PO DAILY Qty: 0 RF: 0 Discontinued fluoxetine 40 mg Capsule 40 mg PO DAILY RF: 0 hydroxyzine pamoate 100 mg Capsule 100 mg PO BEDTIME RF: 0 acetaminophen [Tylenol] 325 mg Tablet 325 mg PO QID PRN (Reason: Pain) RF: 0 Discharge Orders: Discharge Order (Routine); Ordered 10/03/19 Ordered By: Earl Elliott Discharge Diet: Usual diet Discharge Activity: Resume usual activity Patient Instructions: Bupropion (By mouth), Gabapentin (By mouth) Discharge Date/Time: 10/03/19 19:39 Discharge Attestations NPU Time Spent in Discharge Care*: greater than 30 min Specific Discharge Activities: Specific discharge activities: educating patient, discussing with pcp/other providers, discussing with child welfare caseworker/social workers/dc planners, documenting/other paperwork and evaluating patient/reviewing data Coding Level of Care Code Acute Newspaper Library Manager for Daniel Braga Diagnoses Methamphetamine dependence, continuous F15.20 Depression F32.9 Depression Type: unspecified
== END 2019-10-03 19:39 | disposition home or self-care (01) | DRG 897 ==
LOC: ER 17:21 → NP 17:35
PROVIDERS: Emergency Medicine; Admitting Provider Psychiatry & Neurology Psychiatry; Visit Provider Psychiatry & Neurology Psychiatry
DX: F15.229 Other stimulant dependence with intoxication, unspecified (principal); R45.851 Suicidal ideations; F32.2 Major depressive disorder, single episode, severe without psychotic features; Z81.8 Family history of other mental and behavioral disorders; F17.210 Nicotine dependence, cigarettes, uncomplicated
CPT/HCPCS: 12345; 36415; 80053; 80156; 80164; 80178; 80185; 80306; 80307; 84443; 85025; 93005; 99284